=== PATIENT | male | born 1965 | race Caucasian/White ===

== ENCOUNTER 2018-10-04 06:28 | Emergency (ER) | payer BC ==
[~2018-10-04] VITALS: Ht 182.9 cm; Wt 90.9 kg
[2018-10-04 06:33] VITALS: Ht 182.9 cm; Wt 90.9 kg
[2018-10-04] MEDS ORDERED: VOLTAREN75 MG PO (07:07)
[2018-10-04] MEDS ORDERED: ZYLOPRIM100 MG PO (08:21)
[2018-10-04 08:38] VITALS: BP 137/84
== END 2018-10-04 08:39 | disposition home or self-care (01) ==
LOC: D.ER 06:28
DX: M17.0 Bilateral primary osteoarthritis of knee (principal); E79.0 Hyperuricemia without signs of inflammatory arthritis and tophaceous disease; F17.200 Nicotine dependence, unspecified, uncomplicated; M25.561 Pain in right knee